=== PATIENT | male | born 1955 | race Hispanic/Latino ===

== ENCOUNTER 2020-03-15 01:43 | Emergency (ER) | payer OTHER ==
[2020-03-15] MEDS ORDERED: Dextrose 5 % And 0.9 % NaCl 1,000 ML ONE (02:03)
[2020-03-15] MEDS ORDERED: Sodium Chloride 0.9% 250 ML 250 ML ONE ×2 (02:10→02:34)
[2020-03-15 02:20] LABS: ALT (SGPT) 382 U/L (8-55); AST (SGOT) 691 U/L (5-34); Albumin 1.5 g/dL (3.4-4.8); Alkaline Phosphatase 114 U/L (40-110); BUN (Urea Nitrogen) 34 mg/dL (8.4-25.7); Bilirubin, Total 1.4 mg/dL (0.2-1.2); Calc. Creatinine Clearance 0 mL/min (70-130); Chloride 103 mmol/L (98-107); Estimated GFR-MDRD 71; Globulin 1.6 g/dL (2.4-3.5); Glucose 91 mg/dL (80-115); Protein, Total 3.1 g/dL (5.8-8.1); Sodium 133 mmol/L (136-145)
[2020-03-15 02:25] LABS: #Basophils 0.1 thou/uL (0.0-0.2); #Lymphocytes 3.1 thou/uL (1.20-3.40); #Monocytes 0.7 thou/uL (0.11-0.59); #Neutrophils 6.4 thou/uL (1.40-6.50); %Basophils 0.6 % (0.0-1.0); %Eosinophils 0.5 % (0.0-10.0); %Lymphocytes 30.1 % (21.0-51.0); %Monocytes 6.5 % (0.0-10.0); %Neutrophils 62.4 % (42.0-75.0); Hemoglobin 5.2 g/dL (14.0-18.0); Hypochromia SLIGHT = 6-15 cells (100X) (0-5/hpf); MDiff Complete? YES; Macrocytosis MODERATE=16-30 cells (100X) (0-5/hpf); Mean Corpuscular HGB CONC 31.8 g/dL (32.0-36.0); Mean Platelet Volume 6.8 fL (7.4-10.4); Platelet Count 69 thou/uL (130-400); Platelet Morphology Comment Appears Decreased; RBC Distribution Width 16.7 % (11.5-14.5); Red Blood Cell (RBC) Count 1.54 mill/uL (4.70-6.10); White Blood Cell (WBC) Count 10.2 thou/uL (4.8-10.8)
[2020-03-15 02:27] LABS: Carbon Dioxide Less than 8 mmol/L (23-31)
[2020-03-15 02:36] LABS: Prothrombin Time 72.7 SEC (12.0-14.7)
[2020-03-15] MEDS ORDERED: DOPamine 400 MG/D5W 250 ML 250 ML ONE (02:36)
[2020-03-15 02:40] LABS: PTT Greater than 250.0 SEC (22.9-36.1)
[2020-03-15 02:59] LABS: BUN (Urea Nitrogen) 33 mg/dL (8.4-25.7); Calc. Creatinine Clearance 0 mL/min (70-130); Calcium 6.4 mg/dL (7.8-10.44); Chloride 104 mmol/L (98-107); Estimated GFR-MDRD 67; Glucose 139 mg/dL (80-115); Sodium 132 mmol/L (136-145)
[2020-03-15 03:05] LABS: Carbon Dioxide Less than 8 mmol/L (23-31); Potassium 7.3 mmol/L (3.5-5.1)
[2020-03-15] MEDS ORDERED: Dextrose 5% in Water 500 ML ONE (03:21)
[2020-03-15 03:36] LABS: Base Excess-Venous -27.1 mmol/L (-2.0 to 3.0); Bicarbonate (HCO3v) 4.8 mmol/L (22.0-28.0); CO2 Tension (PvCO2) 36.7 mmHg (40.0-50.0); vO2 Saturation-calc 97.5 % (60.0-85.0)
[2020-03-15 03:37] LABS: Hematocrit Less than 10.0 % (42.0-52.0); Potassium 7.1 mmol/L (3.5-5.1); Sodium 130 mmol/L (138-145)
[2020-03-15 03:38] LABS: Chloride 100 mmol/L (98-107); T. Carbon Dioxide 5.9 mmol/L (22.0-28.0)
--- NOTE | 2020-03-15 07:59 | RAD ---
RADIOGRAPH CHEST 1 VIEW: DATE: 03/15/2020 TIME: 2:40 AM HISTORY: Central line placement in 64-year-old male COMPARISON: none FINDINGS: Right subclavian central venous catheter distal tip at the lower portion of right atrium near inferio r vena cava. No cardiomegaly or pneumothorax. Mild streaky patchy pulmonary densities at bilateral bases, and haziness at right mid and upper lung zones. Left apex relatively clear. Lateral costophren ic angles sharp. Defibrillator paddle partially obscures right lung. IMPRESSION: 1. Right-sided central venous catheter placement without pneumothorax. 2. Nonspecific bilateral pulmonary opacities, right greater than left.
[2020-03-16 10:21] LABS: SARS-CoV-2 MS2 Positive; SARS-CoV-2 N Gene Positive; SARS-CoV-2 S Gene Positive; SARS-CoV-2 orf1ab Positive
== END 2020-03-15 03:37 | disposition short-term general hospital (02) ==
LOC: NAV ERS 01:43
DX: I46.9 Cardiac arrest, cause unspecified (principal)
CPT/HCPCS: 36430; 36556; 51702; 71045; 80053; 82330; 82435; 82803; 84132; 84295; 84484; 85014; 85025; 85610; 85730; 86850; 86900; 86901; 87635; 92950; 93005; 94760; 96361; 96365; 96374; 96375; C1751; J1265; J7042; J7050; J7070; P9016; U0003